=== PATIENT | female | born 1990 | race Caucasian/White ===

== ENCOUNTER 2024-02-18 14:57 | Outpatient (CLI) | payer OTHER ==
[~2024-02-18 14:57] MED LIST: Anaprox Ds 550mg TAB PO
== END 2024-02-18 14:58 | disposition home or self-care (01) ==
LOC: PRENATAL 14:57
PROVIDERS: ATTEND Obstetrics & Gynecology Maternal & Fetal Medicine
DX: O35.9XX0 Maternal care for (suspected) fetal abnormality and damage, unspecified, not applicable or unspecified (principal); O35.3XX0 Maternal care for (suspected) damage to fetus from viral disease in mother, not applicable or unspecified; O44.02 Complete placenta previa NOS or without hemorrhage, second trimester; Z3A.20 20 weeks gestation of pregnancy; O28.3 Abnormal ultrasonic finding on antenatal screening of mother

== ENCOUNTER 2024-05-19 10:17 | Outpatient (CLI) | payer OTHER | END 2024-05-19 10:18 | disposition home or self-care (01) | LOC: PRENATAL 10:17 | PROVIDERS: ATTEND Obstetrics & Gynecology Maternal & Fetal Medicine | DX: O26.849 Uterine size-date discrepancy, unspecified trimester (principal); O36.8199 Decreased fetal movements, unspecified trimester, other fetus; O34.219 Maternal care for unspecified type scar from previous cesarean delivery; O09.529 Supervision of elderly multigravida, unspecified trimester; Z3A.33 33 weeks gestation of pregnancy ==